=== PATIENT | male | born 1990 | race Asian ===

== ENCOUNTER 2022-06-15 19:07 | Emergency (ER) | payer BC ==
[~2022-06-15] VITALS: Ht 165.1 cm; Wt 81.6 kg
[2022-06-15] MEDS ORDERED: IV NORMAL SALINE 1000 ML BAG IV ONE (19:30)
[2022-06-15 19:37] LABS: HEMATOCRIT 46.9 % (36.7-47.1); MEAN CORPUSCULAR HEMOGLOBIN 29.6 uug (23.8-33.4); MEAN CORPUSCULAR VOLUME 89.3 fL (73.0-96.2); PLATELET COUNT (AUTO) 371 K/uL (152-348)
[2022-06-15] MEDS ORDERED: NALOXONE HCL 0.4 MG/ML AMPUL ONE (19:37)
[2022-06-15] MEDS ORDERED: NALOXONE HCL 0.4 MG/ML AMPUL IV ONE (19:45)
[2022-06-15 19:46] LABS: CARBON DIOXIDE 22 mmol/L (21-32); CHLORIDE 101 mmol/L (98-107); CREATININE 1.9 mg/dL (0.6-1.3); GLUCOSE 248 mg/dL (74-106); POTASSIUM 3.7 mmol/L (3.5-5.1); UREA NITROGEN, BLOOD 19 mg/dL (7-18)
[2022-06-15 19:53] LABS: ETHANOL < 3 MG/DL (0-0)
[2022-06-15 20:02] LABS: ALANINE AMINOTRANSFERASE 28 U/L (16-63); ALKALINE PHOSPHATASE 99 U/L (50-136); ASPARTATE AMINOTRANSFERASE 8 U/L (15-37); BILIRUBIN,DIRECT 0.1 mg/dL (0.0-0.2); BILIRUBIN,TOTAL 0.4 mg/dL (0.2-1.0); CREATINE KINASE, TOTAL 84 U/L (39-308); TOTAL PROTEIN, SERUM 9.8 g/dL (6.4-8.2)
[2022-06-15 20:03] LABS: ACETAMINOPHEN < 2.0 ug/mL (10-30)
[2022-06-15] MEDS ORDERED: IV NS 1000 ML 1,000 ML IV ONE (20:15)
[2022-06-15] MEDS ORDERED: CLONIDINE HCL 0.1 MG TABLET PO ONE (20:30)
[2022-06-15] MEDS ORDERED: CLONIDINE HCL 0.1 MG TABLET ONE (21:11)
[2022-06-15 21:31] LABS: *BILIRUBIN,URIN 1+ (NEGATIVE); *CLARITY,URINE CLEAR (CLEAR); *COLOR,URINE YELLOW (YELLOW); *KETONES,URINE 1+ (NEGATIVE); *UROBILINOGEN,URINE 0.2 E.U./dl (NORMAL); LEUKOCYTE ESTERASE ,URINE NEGATIVE (NEGATIVE); NITRITE, URINE NEGATIVE (NEGATIVE); PH,URINE 5.5 (5.0-8.0); UGLUCOSE 1+ (NEGATIVE)
[2022-06-15 21:32] LABS: *BLOOD, URINE TRACE (NEGATIVE)
[2022-06-15 21:42] LABS: *AMPHETAMINE, URINE POSITIVE (NEGATIVE); *CANNABINOID, URINE NEGATIVE (NEGATIVE); *COCCAINE, URINE NEGATIVE (NEGATIVE); *PHENCYCLIDINE SCREEN,URINE NEGATIVE (NEGATIVE)
[2022-06-16 00:09] LABS: BACTERIA,URINE FEW /HPF (NONE SEEN); SQUAMOUS EPITHELIAL CELL,UR FEW /HPF (NONE SEEN)
--- NOTE | 2022-06-16 00:15 | NUR ---
Patient is able to answer questions and states he knows the current year it is.
--- NOTE | 2022-06-16 01:29 | NUR ---
Patient's god-sister at bedside and patient is resting comfortably in bed.
[2022-06-16] MEDS ORDERED: CYANOCOBALAMIN 1000 MCG/ML VIAL IM ONE (01:30)
[2022-06-16] MEDS ORDERED: CYANOCOBALAMIN 1000 MCG/ML VIAL ONE (01:32)
--- NOTE | 2022-06-16 01:50 | NUR ---
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
[2022-06-16 02:49] VITALS: BP 128/78
--- NOTE | 2022-06-16 02:49 | NUR ---
Patient discharged to home in stable condition. Written and verbal after care instructions given. Patient verbalizes understanding of instructions. Stressed follow up or return to ER for worsening s/s. Herminia walked out accompainied by his god-sister.
== END 2022-06-16 02:50 | disposition home or self-care (01) ==
LOC: ER 19:09
DX: F23 Brief psychotic disorder (principal); F15.10 Other stimulant abuse, uncomplicated; E11.9 Type 2 diabetes mellitus without complications; R07.89 Other chest pain; R51.9 Headache, unspecified
CPT/HCPCS: 80076; 80048; 81001; 82550; 82607; 85025; 84145; 87040 ×2; 84484; 36415; 93005; 71045; 70450; 99285; 96361; 96374; 96372; 83605 ×2; 80299; 80320; 80307; J2310; J7040 ×2; J3420; A4663; C1758; G0480